=== PATIENT | male | born 1980 | race Caucasian/White ===

== ENCOUNTER 2018-04-11 20:49 | Emergency (ER) | payer MEDICAID ==
[~2018-04-11] VITALS: Ht 185.4 cm; Wt 81.8 kg
[2018-04-11 20:59] VITALS: BP 124/86; Ht 185.4 cm; Wt 81.8 kg
[2018-04-11] MEDS ORDERED: BUPRENORPHIN-N1 EACH SL (21:02)
[2018-04-11] MEDS ORDERED: EFFEXOR XR150 MG PO (21:03)
[2018-04-12] MEDS ORDERED: BACTRIM DS TABL1 TAB PO (01:58)
== END 2018-04-12 02:50 | disposition home or self-care (01) ==
LOC: D.ER 20:49
DX: L02.414 Cutaneous abscess of left upper limb (principal); F17.200 Nicotine dependence, unspecified, uncomplicated

== ENCOUNTER 2018-04-15 02:06 | Emergency (ER) | payer MEDICAID ==
[~2018-04-15] VITALS: Ht 185.4 cm; Wt 77.3 kg
[~2018-04-15 02:06] MED LIST: BACTRIM DS TABL1 TAB PO; BUPRENORPHIN-N1 EACH SL; EFFEXOR XR150 MG PO
[2018-04-15 02:08] VITALS: Ht 185.4 cm; Wt 77.3 kg
[2018-04-15 02:47] LABS: BASOPHILS 0.2 % (0-2); EOSINOPHILS 2.9 % (0-7); HEMATOCRIT 29.1 % (42.0-54.0); HEMOGLOBIN 10.1 g/dL (13.5-17.5); IMMATURE GRANULOCYTES 0.2 % (0-5); LYMPHOCYTES 27.3 % (15-50); MCH 31.2 pg (26.0-34.0); MCHC 34.7 g/dL (31.0-37.0); MCV 89.8 fL (80.0-100.0); MEAN PLATELET VOLUME 9.6 fL (7.4-10.4); MONOCYTES 10.2 % (2-11); NEUTROPHILS 59.2 % (40-80); PLATELET COUNT 182 10x3/uL (130-400); RBC 3.24 10x6/uL (4.20-6.10); RDW 12.4 % (11.5-14.5); WBC 4.2 10x3/uL (4.8-10.8)
[2018-04-15 03:00] LABS: ALKALINE PHOSPHATASE 36 U/L (46-116); ALT (SGPT) 21 U/L (10-68); CALC OSMOLALITY 279 mosm/kg (275-300); CALCIUM 8.3 mg/dL (8.5-10.1); CARBON DIOXIDE 26.3 mmol/L (21.0-32.0); CHLORIDE - SERUM 106 mmol/L (98-107); CREATININE - SERUM 0.9 mg/dL (0.6-1.3); GLUCOSE 93 mg/dL (74-106); POTASSIUM - SERUM 3.7 mmol/L (3.5-5.1); PROTEIN - SERUM 6.2 g/dL (6.4-8.2); SODIUM 141 mmol/L (136-145); UREA NITROGEN 9 mg/dL (7-18); eGFR NON AFRICAN AMERICAN > 90 mL/min (90-120)
[2018-04-15 04:52] VITALS: BP 141/82
== END 2018-04-15 04:41 | disposition home or self-care (01) ==
LOC: D.ER 02:06
PROVIDERS: Family Medicine
DX: M79.632 Pain in left forearm (principal); I10 Essential (primary) hypertension